=== PATIENT | female | born 1985 | race Caucasian/White ===

== ENCOUNTER → 2017-07-13 10:22 | Outpatient (CLI) | payer BC, SELFPAY ==
[2017-07-20 10:21] LABS: HPV HC, High Risk Negative (Negative); HPV Reflexed? YES, CHARGE PATIENT
== END ==
PROVIDERS: Visit Provider Obstetrics & Gynecology
DX: Z12.4 Encounter for screening for malignant neoplasm of cervix (principal)
CPT/HCPCS: 87624; 88175; G0145

== ENCOUNTER → 2019-01-15 14:31 | Outpatient (CLI) | payer BC, SELFPAY ==
[2019-01-22 16:07] LABS: Age Gdln ACOG Testing 30-65 (.)
[2019-01-23 12:04] LABS: HPV APTIMA, High Risk Negative (Negative)
[2019-01-23 12:12] LABS: HPV Reflexed? YES, CHARGE PATIENT
== END ==
PROVIDERS: Visit Provider Obstetrics & Gynecology
DX: Z12.4 Encounter for screening for malignant neoplasm of cervix (principal)
CPT/HCPCS: 87624; 88175; G0145

== ENCOUNTER → 2020-03-19 17:27 | Outpatient (CLI) | payer BC, SELFPAY ==
[2020-03-19 18:56] LABS: LDH 183 U/L (84-246); hCG Titer Quant., Serum < 1 mIU/mL (1-3)
[2020-03-22 07:22] LABS: Cancer Antigen 125 16.3 U/mL (0.0-38.1); Carcinoembryonic Antigen 0.9 ng/mL (0.0-4.7)
[2020-03-23 15:40] LABS: Carbohydrate Ag 19-9 2261 12 U/mL (0-35)
== END ==
PROVIDERS: Visit Provider Student in an Organized Health Care Education/Training Program
DX: Z34.90 Encounter for supervision of normal pregnancy, unspecified, unspecified trimester (principal)
CPT/HCPCS: 36415; 82378; 83615; 84702; 86301; 86304

== ENCOUNTER 2020-05-21 09:43 | Day surgery (SDC) | payer BC, SELFPAY ==
[2020-05-18 17:30] LABS: Hematocrit 40.2 % (37-47); Hemoglobin 13.3 g/dL (12.0-15.0); Mean Corp Hgb Conc 33.1 g/dL (32-36); Mean Corpuscular Hgb 29.7 pg (27.0-32.0); Mean Corpuscular Volume 89.7 fL (81-99); Mean Platelet Vol. 10.4 fl (6.2-12.0); Platelet Count 354 K/mm3 (150-450); RBC Distribution Width CV 12.6 % (11.6-14.6); RBC Distribution Width SD 41.2 fl (35.1-43.9); Red Blood Count 4.48 M/mm3 (4.2-5.4); White Blood Count 10.4 K/mm3 (4.4-11.0)
--- NOTE | 2020-05-20 07:22 | PCM.HPOB.BLA ---
History and Physical Date of Admission: 05/21/20 HISTORY OF PRESENT ILLNESS: On 05/18/2020, Kecia Armstrong, a 34 year old female 1 0 0 0 1, presented for: hysteroscopy, polypectomy, laparoscopic ovarian cystectomy. For uterine polyp and right ovarian cyst, possible dermoid. ALLERGIES: NKDA and No Known Drug Allergies Medical HISTORY: Hidradenitis suppuritiva Depression MEDICATIONS HISTORY: Patient is also takin. sertraline 25 mg tablet, daily PAST HISTORY: Breast/Ovarian/Colon Cancers - Denies Infections - Chicken pox Illnesses - none Accidents - no injuries of consequence History of Abnormal PAPS - NO Hospitalizations - Childbirth SURGICAL HISTORY: 1. [place] Teeth 2. 06/24/2016 left laser vein ablation 3. 04/20/2012 tonsillectomy MENSTRUAL HISTORY: LMP Known?- DefiniteAmount/Duration - 4 to 6 days, Regularity - Irregular, Frequency - monthly days, LMP - 04/24/20, Age Onset Menarche - 16 PAST PREGNANCIES: Total Pregnancies - 1; Full Term Pregnancies - 1; Premature - 0; Abortions, Induced - 0; Abortions, Spontaneous - 0; Ectopics - 0; Multiple Births - 0; Living Children - 1 FAMILY HISTORY (OLD): Maternal history of Heart Disease. Paternal history of Lung CA--Smokers. Father: Esophageal, Liver Ca. Father - FH: Cancer of the esophagus; SOCIAL HISTORY: Alcohol Use - RARELY Smoking - denies smoking Denies REVIEW OF SYSTEMS: GENERAL - Denies fever, or chills SKIN - Denies skin changes EYES - Denies visual changes EARS - Denies difficulty hearing NOSE - Denies nasal congestion or bleeding MOUTH - Denies sore throat or difficulty swallowing NECK - Denies pain or swelling RESPIRATORY - Denies shortness of breath or wheezing CARDIOVASCULAR - Denies palpitations or chest pain GASTROINTESTINAL - Denies nausea, vomiting, diarrhea, constipation GENITOURINARY - Denies dysuria, frequency of urination, incontinence of urine MUSCULOSKELETAL - Denies joint or muscle pain NEUROLOGICAL - Denies localized numbness or weakness PSYCHIATRIC - Denies depression or anxiety ENDOCRINE - Denies heat or cold intolerance, weight loss or gain HEMATO-IMMUNOLOGIC - Denies excesive bleeding with cuts BP- 140/100 Sitting, Right arm, large cuff Temp- 98.2 Weight- 305.80 lbs Height- 72.00 inch BMI:41.56 CONSTITUTIONAL - NAD, well nourished, and well developed SKIN - No rash, lesions, or ulcers HEENT - Normocephalic, PERRLA, EOMI NECK - No nodes, no nuchal rigidity and thyroid normal size and texture LYMPH NODES - Palpation of lymph nodes in neck and groins within normal limits LUNGS - CTA x2 without wheezes, crackles or rales CARDIAC - Regular rate and rhythm without rubs, murmurs, or gallops ABDOMEN - Without hepatosplenomegaly, distention, masses, rebound, or guarding; normal bowel sounds; no hernias EXTREMITIES - No edema or calf tenderness NEUROLOGICAL - Cranial nerves II-XII grossly intact PSYCHIATRIC - A and O to time, place, person, mood and affect DETAILED PELVIC EXAM External Genital Vagina - non-tender without lesions Urethra/Urethral Meatus - non-tender Bladder - non-tender Vagina - vaginal adair are pink and moist without loss of rugae and no evidence of atropy Cervix - without cervical motion tenderness and has normal size and features without evident lesions Uterus - 5-6 cm in size, mobile and nontender Adnexa - clear without massess or tenderness ASSESSMENT: PLAN BY DIAGNOSIS: 1. 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 PLanned for Hysteroscopy, polypectomy with Symphion, laparoscopic ovarian cystectomy. Likely dermoid cyst, tumor markers were wnl R/B/A discussed. Risks include, but are not limited to: risk of bleeding to the point of transfusion, infection, injury to surrounding tissue like bowel/bladder (requiring prolonged jerry catheter use), ICU admission, VTE, possible mini laparoscopy. Pt aware, consents signed
[2020-05-21] VITALS (8 sets, daily range): BP systolic 126–152; BP diastolic 80–102; PULSE 70–79; RESP 16–18; TEMP 36–36.9; O2SAT 95–100; BMI 40.9
--- NOTE | 2020-05-21 | EMB_PTH ---
PATIENT: KYLE JEFFERSON LOC: [facility] [place] U#:[id number] AGE/SX: 34/F ROOM: RE05/21/[address]: Dr. Karine Harmon DO : 1985 BED: DIS: 05/21/2020 SPEC #: [id number] RECD: 05/21/20 15:58 STATUS: AIMEE REKervin #: [id number] BOBBI: 05/21/20 00:[address]: Karine Harmon DEPT: SURGICAL PATHOLOGY RECD BY: Gerson Chambers ENTERED: 05/22/20 07:53 SP TYPE: ENDOM BX/C CARLOS DR: Uzma Brown PA-C Tissues: A - Endometrium, NOS B - Right ovary Procedures: Surgery Specimen Level IV Surgery Specimen Level V HEADER OPERATION: Hysteroscopy, D & C Symphion PRE-OP DIAGNOSIS: Infertility, neoplasm of ovary, polyp of corpus uteri TISSUE SUBMITTED: A - Endometrial polyp, B - Right ovary MICROSCOPIC DIAGNOSIS A. Endometrial polyp, biopsy: Polypoid fragments of transition endometrium with glandular and stromal breakdown. B. Right ovary, oophorectomy: Benign cystic teratoma (dermoid cyst). AM:kg 05/25/2020 MICROSCOPIC DESCRIPTION Slides are reviewed. GROSS DESCRIPTION A - Received in fixative is one container labeled with the patient's name and designated endometrial polyp. The specimen consists of multiple irregular fragments of light to dark silva soft tissue measuring in aggregate 2 x 1 x 0.1 cm. The specimen is totally submitted in one cassette. B - Received in fixative is one container labeled with the patient's name and designated right ovary. The specimen consists of a cystic right ovary that has partly been opened measuring 11 x 10 x 8 cm and is received in four fragments, the smallest of which measures 2.5 cm. The external surface is smooth and glistening. No papillary projections or excrescences are identified. The external surface is inked. The specimen weighs 255 gm in aggregate. Serial sections reveal a multilobulated cystic structure occupying 95%. The cyst wall ranges in thickness from 0.2 to 0.4 cm. The inner cyst wall is smooth and glistening. No papillary projections or excrescences are seen. A focally, nodular, firm area containing hair is present and measures 3.5 cm in greatest dimension. Tie Puller sections are submitted in four cassettes. / AM:kg 05/22/20 TC:1 CPT: 83701, 95690
[2020-05-21 10:10] LABS: Internal QC Validated? YES +Cl - CLEAR BKGD; Pregnancy, Urine Negative Negative; Record Kit Lot#,Urine Preg 42077
[2020-05-21] MEDS: Lactated Ringers 1,000 ML 100 ML IV (10:26)
--- NOTE | 2020-05-21 11:28 | OP.PCM_ITS ---
Report of Operation Date of Procedure: 05/21/20 Pre-Operative Diagnosis: Endometrial polyp, right ovarian cyst Post-Operative Diagnosis: Endometrial polyp, right ovarian cyst likely dermoid, abdominal adhesions Surgery/Procedure Performed:: Hysteroscopy, polypectomy with Symphion. Laparoscopic right oophorectomy, lysis of adhesions. Minilaparotomy. Description of Surgical Findings:: Normal external genitalia. Moderate uterine descensus. Small anterior endometrial polyp. Left pelvic adhesions of bowel fat to pelvic sidewall. Left fallopian tube adhesed and stretch posteriorly towards left colon, unable to delineate fallopian tube fimbria. Bowel fat adhered to left posterior region of uterus. Enlarged right ovarian cyst encompassing entire ovary. Appeared to have some cystic and solid regions, sebaceous material and hair within ovarian cyst. Normal right fallopian tube. Type of Anesthesia:: General Specimen's removed: Endometrial polyp, right ovary Estimated Blood Loss (mL): 50cc Fluids Replaced: 1000cc Description of Procedure: Indications: 34-year-old female with endometrial polyp and enlarged right ovarian cyst. Decision for polypectomy and cyst removal, possible oophorectomy, was made. All risk, benefits, alternatives were discussed with the patient. Risks include but are not limited to: Risk of bleeding to the point of transfusion, infection, injury to surrounding tissue including bowel or bladder, VTE, ICU admission, larger incision, possible oophorectomy. Patient were consented. Procedure: Patient taken to the operating room and placed under general anesthesia. Patient placed in the dorsal lithotomy position and prepped and draped in the usual sterile fashion. Weighted speculum placed in the posterior vagina and Alvarez retractor used to visualize the cervix which was grasped with Allis clamp. Cervix was noted to be dilated. Symphion device purged and prepped. Hyste roscope placed through the cervical canal and inspection of the endometrial cavity was noted. Fluffy endometrial lining was noted, as expected due to patient being on her menses. Small anterior endometrial polyp noted as well. Attempt to use a polyp forceps to remove, was unsuccessful. Symphion device utilized to remove polyp. Uterus sounded and HUMI manipulator placed. Allis clamp and weighted speculum removed. Deficit 600cc during this portion of the procedure Gloves were changed and attention turned the anterior abdominal wall. Veress needle placed through the umbilicus with normal opening pressure. Abdomen insufflated. 12 mm vertical supraumbilical incision made with scalpel and trocar placed under direct visualization. Right and left lower quadrant trochars were placed under direct visualization. Findings as above. Left bowel fat adhesions lysed with scissors and LigaSure. Small area of posterior uterus adhesions lysed with LigaSure. Right ovarian cyst encompassing the entire right ovary. Decision for right oophorectomy made. Right IP ligament coagulated in several locations and cut. Dissection carried down along peritoneal attachments, freeing the ovary. Right ovary was very large measuring about 12 cm. Attempted to utilize Endo Catch bag to remove the ovary however this first 1 was too small. Larger bag opened. The fascial incision in the supraumbilical trocar site was too small therefore the trochars removed and the incision was extended. This bag was able to be placed through this fascial opening at the time. It was opened and several attempts to place the ovary into the bag were made. Attempted to scoop the ovary using the bag, attempted to grasp the ovary in several locations and placed into the bag, and attempted to hold the ovary an d move the bag around it in a stable place were made. None of these were successful. At that time decision for mini laparotomy was made. Endo Catch bag was removed. 10 cm load transverse suprapubic incision made with scalpel was carried down through subcutaneous tissue using scalpel and fascia was nicked on either side of the midline. Fascia the superior fascial edge was tented up and underlying rectus muscles were dissected off bluntly and sharply. Rectus muscles were superiorly and peritoneum was identified grasped with 2 hemostats and incised using scalpel. The ovary was grasped and attempted to elevate through the incision, however the ovary was very large for the incision, being held up by the peritoneum and rectus muscles. Left rectus muscle was incised with scissors. Cystic fluid-filled area was incised with a needle and aspirated. This was not enough fluid removed to allow the ovary to be removed through the incision. Another attempt noted thicker fluid. During the attempt to grasp the ovary with RP clamps a portion of the ovary was opened. Sebaceous material and some hair was extruded and removed. At this time the ovary was able to be removed through the incision. The incision and pelvis was irrigated with 2 L of saline. Gloves were changed. Fascia was closed with a running stitch. Subcutaneous tissue was closed with a running stitch. Skin closed with a running subcuticular r stitch in this mini laparotomy area. Trochars were removed. Skin closed with a subcuticular stitch and skin glue. At the end of the procedure all needle, lap, sponge counts were correct x3. UOP 300cc - Complications None - Admit VTE Documentation VTE Mechan Device Prophylaxis: SCD's
--- NOTE | 2020-05-21 11:29 | DCINST_ITS ---
Discharge Activity: Return to Normal Activity, May not drive while taking narcotic pain medications., May Shower May resume sexual activity in: 4 weeks Weight Bearing Status: Weight bearing as tolerated Call your doctor if your incision/area has: Continuous Slow Oozing, Sudden Increased Bleeding, Increased Pain/ Swelling, Increased Redness Call your doctor if you observe: Inability to have a bowel movement, Using more than one pad per hour, Shortness of breath, Dizziness, Calf discomfort, Uncontrolled pain Remove Dressing in (days):: 1 Cleanse incision/area with: Soap & Water Additional Dressing/Incision Instructions:: Okay to remove larger incision dressing after 24 hours after surgery. Leave open to air. Allergies/Adverse Reactions: Allergies No Known Allergies Allergy (Verified 05/21/20 10:10) Medications to take at Discharge Famotidine [Pepcid] 40 mg PO BID 05/14/20 Sertraline HCl [Zoloft] 25 mg PO DAILY 05/14/20 Oxycodone [Oxyir] 5 mg PO Q6H PRN PRN 3 Days #12 tab 05/21/20 The following prescriptions were given: Oxycodone [Oxyir] 5 mg PO Q6H PRN PRN 3 Days #12 tab PRN Reason: Pain Score 6-10 Transmission Status: Received by [facility] Primary Care Physician: Uzma Brown PA-C [Primary Care Provider] - Test Results: Test results from this visit will be discussed in further detail at your follow- up appointment, if applicable. Please Follow Up With: Karine Harmon DO When: 2 week post operative visit
[2020-05-21] MEDS: oxyCODONE 5 MG Tablet PO (15:30)
== END 2020-05-21 17:01 | disposition home or self-care (01) ==
LOC: SDC 09:48 → AC 09:48
PROVIDERS: Anesthesiology; PCP Family Medicine; Referring Provider Student in an Organized Health Care Education/Training Program; Visit Provider Student in an Organized Health Care Education/Training Program
PROC: 0UB98ZZ Excision of Uterus, Via Natural or Artificial Opening Endoscopic (ICD-10-PCS; CPT 58558; principal; 2020-05-21 11:15)
PROC: (CPT 58661; 2020-05-21 11:15)
DX: D27.0 Benign neoplasm of right ovary (principal); N84.0 Polyp of corpus uteri; N97.9 Female infertility, unspecified; F32.9 Major depressive disorder, single episode, unspecified; K21.9 Gastro-esophageal reflux disease without esophagitis; F41.9 Anxiety disorder, unspecified; Z79.899 Other long term (current) drug therapy
CPT/HCPCS: 00952; 58558; 58661; 36415; 81025; 85027; 86850; 86900; 86901; 88305; 88307; J7120; J2405

== ENCOUNTER 2021-04-20 09:35 | Outpatient (CLI) | payer OTHER, SELFPAY ==
[2021-04-20 11:19] LABS: Hematocrit 38.5 % (37-47); Mean Corp Hgb Conc 33.8 g/dL (32-36); Mean Corpuscular Hgb 29.7 pg (27.0-32.0); Mean Corpuscular Volume 88.1 fL (81-99); Mean Platelet Vol. 10.8 fl (6.2-12.0); Platelet Count 271 K/mm3 (150-450); RBC Distribution Width SD 41.7 fl (35.1-43.9); Red Blood Count 4.37 M/mm3 (4.2-5.4); White Blood Count 8.3 K/mm3 (4.4-11.0)
[2021-04-20 11:28] LABS: Protein, Urine (Random) 9.9 mg/dL (<11.9); Protein:Creat Ratio 75 mg/g CRE (0-200)
[2021-04-20 11:29] LABS: ALB/GLOB Ratio 0.7 RATIO (0.9-2.4); AST(SGOT) 12 U/L (15-37); Alanine Aminotransfer ALT/SGPT 12 U/L (13-56); Albumin, Serum 2.8 g/dL (3.2-5.0); Alkaline Phosphatase 61 U/L (45-117); Anion Gap 6 (5-15); BUN 6 mg/dL (7-18); BUN/Creat Ratio 10.6 RATIO (10-20); Calcium,Total 8.8 mg/dL (8.5-10.1); Chloride 109 mmol/L (98-107); Creatinine, Serum 0.57 mg/dL (0.55-1.02); EST Glomerular Filtration Rate 130 mL/min (>60); Est Glom Filt Rate - Afr Amer 158 mL/min (>60); Glucose 104 mg/dL (74-106); LDH 142 U/L (84-246); Potassium 4.1 mmol/L (3.5-5.1); Protein, Total 6.8 g/dL (6.4-8.2); Sodium Level 138 mmol/L (136-145)
== END 2021-04-20 23:59 | disposition home or self-care (01) ==
PROVIDERS: PCP Family Medicine; Visit Provider Student in an Organized Health Care Education/Training Program
DX: O16.9 Unspecified maternal hypertension, unspecified trimester (principal); Z3A.00 Weeks of gestation of pregnancy not specified
CPT/HCPCS: 36415; 80053; 82570; 83615; 84156; 85027; 87086; 87088

== ENCOUNTER → 2021-06-17 | Outpatient (CLI) | payer OTHER, SELFPAY ==
[2021-06-17 15:23] LABS: Hematocrit 34.6 % (37-47); Hemoglobin 11.3 g/dL (12.0-15.0); Mean Corp Hgb Conc 32.7 g/dL (32-36); Mean Corpuscular Hgb 29.5 pg (27.0-32.0); Mean Corpuscular Volume 90.3 fL (81-99); Mean Platelet Vol. 11.2 fl (6.2-12.0); Platelet Count 244 K/mm3 (150-450); RBC Distribution Width CV 13.5 % (11.6-14.6); RBC Distribution Width SD 43.6 fl (35.1-43.9); Red Blood Count 3.83 M/mm3 (4.2-5.4); White Blood Count 11.8 K/mm3 (4.4-11.0)
[2021-06-17 15:30] LABS: Glucose Challenge Gest 1H 50g 142 mg/dL (70-140)
== END | disposition home or self-care (01) ==
LOC: WOBLAB 13:55
PROVIDERS: PCP Family Medicine; Visit Provider Student in an Organized Health Care Education/Training Program
DX: Z34.83 Encounter for supervision of other normal pregnancy, third trimester (principal)
CPT/HCPCS: 36415; 82950; 85027

== ENCOUNTER → 2021-06-21 | Outpatient (CLI) | payer OTHER, SELFPAY ==
[2021-06-21 09:23] LABS: Glucose GTT-Gestation. Fasting 93 mg/dL (<105)
[2021-06-21 10:29] LABS: Glucose GTT-Gestational 1 Hr 150 mg/dL (<190)
[2021-06-21 11:39] LABS: Glucose GTT-Gestational 2 Hr 116 mg/dL (<165)
[2021-06-21 13:03] LABS: Glucose GTT-Gestational 3 Hr 101 L (<145)
== END | disposition home or self-care (01) ==
LOC: WOBLAB 08:45
PROVIDERS: PCP Family Medicine; Visit Provider Student in an Organized Health Care Education/Training Program
DX: O24.912 Unspecified diabetes mellitus in pregnancy, second trimester (principal); Z3A.00 Weeks of gestation of pregnancy not specified
CPT/HCPCS: 36415; 82951; 82952

== ENCOUNTER 2021-07-02 16:27 | Outpatient (CLI) | payer OTHER, SELFPAY ==
[2021-07-02] VITALS (8 sets, daily range): BP systolic 115–141; BP diastolic 64–97; PULSE 70–83; TEMP 36.3; O2SAT 97; BMI 43.3
[2021-07-02 18:48] LABS: Hematocrit 34.6 % (37-47); Hemoglobin 11.3 g/dL (12.0-15.0); Mean Corp Hgb Conc 32.7 g/dL (32-36); Mean Corpuscular Hgb 30.3 pg (27.0-32.0); Mean Corpuscular Volume 92.8 fL (81-99); Mean Platelet Vol. 10.5 fl (6.2-12.0); Platelet Count 244 K/mm3 (150-450); RBC Distribution Width CV 13.9 % (11.6-14.6); RBC Distribution Width SD 46.8 fl (35.1-43.9); Red Blood Count 3.73 M/mm3 (4.2-5.4); White Blood Count 11.5 K/mm3 (4.4-11.0)
[2021-07-02 18:55] LABS: Color, Urine Yellow (Yellow); Glucose, Dipstick Normal (Normal); Ketone-Dipstick Negative (Negative); Leukocyte Esterase-Dipstick 100 /ul (Negative); Nitrite-Dipstick Negative (Negative); Occult Blood-Urine 250 /ul (Negative); Protein-Dipstick 30 mg/dl (Negative); Specific Gravity, Urine 1.025 (1.002-1.030); Urine Bilirubin Dipstick Negative (Negative); Urine Clarity Sl. Cloudy (Clear); Urine Urobilinogen 1 mg/dl (Normal)
[2021-07-02 19:03] LABS: ALB/GLOB Ratio 0.7 RATIO (0.9-2.4); AST(SGOT) 9 U/L (15-37); Alanine Aminotransfer ALT/SGPT 13 U/L (13-56); Albumin, Serum 2.7 g/dL (3.2-5.0); Alkaline Phosphatase 68 U/L (45-117); Anion Gap 3 (5-15); BUN 9 mg/dL (7-18); BUN/Creat Ratio 20.8 RATIO (10-20); Calcium,Total 8.6 mg/dL (8.5-10.1); Chloride 110 mmol/L (98-107); Creatinine, Serum 0.43 mg/dL (0.55-1.02); EST Glomerular Filtration Rate 178 mL/min (>60); Est Glom Filt Rate - Afr Amer 215 mL/min (>60); Estimated Creatinine Clearance 214.74 ml/min; Globulin 3.7 g/dL (2.2-4.2); Glucose 94 mg/dL (74-106); LDH 122 U/L (84-246); Potassium 4.2 mmol/L (3.5-5.1); Protein, Total 6.4 g/dL (6.4-8.2); Sodium Level 139 mmol/L (136-145)
--- NOTE | 2021-07-02 23:49 | OB.TRI.NOTE ---
HPI - General HPI Narrative KYLE JEFFERSON, is a 35 F at 27 1/7 weeks gestation by IVF dating (NICKIE 09/30/21) who presents with c/o vaginal bleeding with wiping x1 and right lower pelvic cramping. PFSH PFSH Home Medications sertraline 50 mg PO DAILY 05/14/20 [History Last Taken 07/02/21 06:00] pantoprazole [Protonix] 20 mg PO DAILY 07/02/21 [History Last Taken 07/02/21 06:00] Allergy/AdvReac Type Severity Reaction Status Date / Time No Known Allergies Allergy Verified 07/02/21 17:09 Social History Smoking Status: Never smoker NST FHR Rate Baby A Baseline: 135 Variability:: Moderate Accelerations:: 10 x 10 NST Reactive:: Yes and Appropriate for gestational age FHR Category:: Category I Uterine Activity:: 0/10 Assessment & Plan (1) 27 weeks gestation of : PLAN: No further bleeding on observation A positive No evidence of labor d/c home
[2021-07-03 23:15] LABS: 24HR. Urine Creatinine 1.17 g/24 HR (0.70-1.90)
[2021-07-04 00:50] LABS: 24 Hour Urine Protein 196.3 mg/24HR (<150 MG/24HR); 24HR. UA Prot. Total Volume 1300 mL; Urine Protein (24 Hour) 15.1 mg/dL (<11.9)
== END 2021-07-02 20:20 | disposition home or self-care (01) ==
LOC: WPOUT 16:29 → WP 16:29
PROVIDERS: PCP Family Medicine; Visit Provider Obstetrics & Gynecology
DX: O26.892 Other specified pregnancy related conditions, second trimester (principal); R10.2 Pelvic and perineal pain; R03.0 Elevated blood-pressure reading, without diagnosis of hypertension; Z3A.27 27 weeks gestation of pregnancy; O09.812 Supervision of pregnancy resulting from assisted reproductive technology, second trimester; O46.92 Antepartum hemorrhage, unspecified, second trimester
CPT/HCPCS: 36415; 59050; 80053; 81002; 82570; 83615; 84156; 84550; 85027; 87086; 87088; 99218; G0378

== ENCOUNTER → 2021-09-07 | Outpatient (CLI) | payer OTHER, SELFPAY | END | disposition home or self-care (01) | LOC: LABSPEC 15:20 | PROVIDERS: PCP Family Medicine; Visit Provider Student in an Organized Health Care Education/Training Program | DX: Z36.85 Encounter for antenatal screening for Streptococcus B (principal) | CPT/HCPCS: 87081 ==

== ENCOUNTER 2021-09-26 11:20 | Inpatient (IN) | payer OTHER, SELFPAY ==
[2021-09-26] VITALS (18 sets, daily range): BP systolic 117–150; BP diastolic 70–94; PULSE 67–86; TEMP 36.2–37.4; O2SAT 95–98; BMI 43.0
[2021-09-26] MEDS: Lactated Ringers 1,000 ML 50 ML IV (12:15)
[2021-09-26 12:44] LABS: Absolute Lymphocyte Count 1.83 X10^3/uL (0.83-4.51); Absolute Neutrophil Count 7.6 X10^3/uL (2.0-7.7); Basophil# 0.02 X10^3/uL; Basophil% 0.2 % (0-1); Eosinophil# 0.03 X10^3/uL; Eosinophils% 0.3 % (0-5); Hematocrit 35.7 % (37-47); Hemoglobin 11.4 g/dL (12.0-15.0); Lymphocyte # 1.83 X10^3/ul (0.83-4.51); Lymphocyte % 18.1 % (19-41); Mean Corp Hgb Conc 31.9 g/dL (32-36); Mean Corpuscular Hgb 28.9 pg (27.0-32.0); Mean Corpuscular Volume 90.4 fL (81-99); Mean Platelet Vol. 11.6 fl (6.2-12.0); Monocyte# 0.55 X10^3/uL; Monocyte% 5.4 % (0-10); NRBC Flagged by Analyzer 0 % (0-5); Neutrophil # 7.63 X10^3/uL (2.7-7.7); Neutrophil % 75.4 % (47-70); Platelet Count 215 K/mm3 (150-450); RBC Distribution Width SD 46.3 fl (35.1-43.9); Red Blood Count 3.95 M/mm3 (4.2-5.4); White Blood Count 10.1 K/mm3 (4.4-11.0)
[2021-09-26] MEDS: miSOPROStol 25 MCG TABLET VAGINAL (12:50)
[2021-09-26 14:59] LABS: Chlamydia Trachomatis by PCR Negative (Negative); Neisserai gonorrhoeae by PCR Negative (Negative); Probe Check PASS; Sample Adequacy Control PASS; Specimen Processing Control PASS
[2021-09-26] MEDS: Oxytocin 30 units/NS 500 ml 30 UNITS/500 ML IV.SOLN IV (18:05)
[2021-09-27] VITALS (79 sets, daily range): BP systolic 80–152; BP diastolic 49–105; PULSE 61–117; RESP 17; TEMP 36.1–37.1; O2SAT 95–100
[2021-09-27] MEDS: LACTATED RINGERS 500 ML 999 ML IV ×5 (00:15→16:17)
[2021-09-27 00:50] LABS: Rubella IgG Reactive (Nonreactive)
--- NOTE | 2021-09-27 06:57 | PCM.HP.BLA ---
History and Physical Date of Admission: 09/26/21 Chief complaint: Induction of labor at term History of present illness: 36-year-old G2, P1 at 39 weeks and 4 days with NICKIE 09/30/2021 12-week ultrasound arrives for induction of labor at term. Denies headache, visual changes, chest pain, shortness of breath, nausea vomit, right upper quadrant pain. Patient states good movement. is complicated by IVF donor egg Obstetric history: G1: 40-week 10/2010 G2: Current Past medical history: None Medications: vitamin, aspirin Past surgical history: Right oophorectomy, D&C polypectomy, venous knee surgery Family history: Denies history DVT or PE Social history: Denies smoking, alcohol use, drug use Review of systems: Besides above pertinent positives a full review of systems was performed and found to be negative Physical exam: Vitals: Blood pressure 117/75 pulse 74 General: Normal-appearing no acute distress none HEENT: Normocephalic/atraumatic no cervical lymphadenopathy Cardiac/respiratory: No successor muscles, nonlabored breathing Abdomen: Soft, nontender, gravid Cervical exam: 2-3/50/-3. AROM thin meconium Extremities: No peripheral edema normal peripheral pulses Labs: White blood cell count 10.1 hemoglobin 11.4 hematocrit 35.7% platelets 215. Blood type a positive antibody negative Assessment plan: 36-year-old G2, P1 at 39 weeks and 4 days arrives for induction of labor at term Admit labor and delivery CEFM GBS negative Cytotec induction, now Pitocin. AROM thin meconium, educated patient on meconium and risk for meconium aspiration. Will have helper shear operator at delivery Routine orders Anesthesia to see
[2021-09-27] MEDS: Lactated Ringers 1,000 ML 50 ML IV (07:40)
[2021-09-27] MEDS: fentaNYL-bupivacaine (epidural) 100 ML BAG EPIDURAL ×2 (08:04→12:43)
[2021-09-27] MEDS: Ondansetron 4 MG/2 ML Vial IV (13:19)
[2021-09-27] MEDS: Oxytocin 30 units/NS 500 ml 30 UNITS/500 ML IV.SOLN 334 UNITS IV (15:39)
[2021-09-27] MEDS: miSOPROStol 200 MCG Tablet 1000 MCG RC (15:46)
[2021-09-27] MEDS: Methylergonovine 0.2 MG/ML Ampul IM (15:49)
--- NOTE | 2021-09-27 16:25 | EX.PCM.OBRPT ---
Maternal Data Information Final NICKIE: 09/30/21 Vaginal Delivery Operative Information Date of Procedure: 09/27/21 Pre-Operative Diagnosis: Rankin intrauterine at term, meconium fluid Post-Operative Diagnosis: Rankin intrauterine at term, meconium fluid Surgery / Procedure Performed: Spontaneous Vaginal Delivery Type of Anesthesia: Epidural Estimated Blood Loss: 600cc Findings Description of Procedure: Spontaneous vaginal delivery of viable male. No nuchal cord. Baby to mom. Cord clamped and cut. Spontaneous delivery of placenta. First-degree laceration, repaired in usual fashion, hemostatic. Right labial abrasion, hemostatic without intervention. Placenta intact. Cervix examined, no lacerations. Uterus firm with bimanual massage. 1000 mcg Cytotec placed per rectum, 0.2 mg Methergine given IM. Patient had vasovagal episode when head elevated in bed. Became hypotensive, bradycardic. [place] lightheaded. Patient given IV fluid bolus. Hypotension and bradycardia resolved after patient laid flat. Patient feeling much improved. Slowly elevate head. To get up with RN when ambulating for the first time. Infant A Gender: Male (1 minute): 8 (5 minute): 9
[2021-09-27] MEDS: 0.9% Saline Lock 10 ML Syringe IV (18:22)
--- NOTE | 2021-09-27 19:09 | NURSING ---
Discussed plan with epidural catheter with Dawson. This RN was told in report to leave epidural catheter in place in case of spinal RICCI. Pt legs remain numb and pt has not ambulated. Plan to leave in place with syringe on end at this time. Will pass information onto oncoming RN.
[2021-09-27] MEDS: Ibuprofen 600 MG Tablet PO (21:07)
[2021-09-28] VITALS (13 sets, daily range): BP systolic 106–132; BP diastolic 60–88; PULSE 90–105; RESP 16; TEMP 36.4–37; O2SAT 95–98
[2021-09-28 06:18] LABS: Hemoglobin 7.7 g/dL (12.0-15.0); Mean Corp Hgb Conc 32.1 g/dL (32-36); Mean Corpuscular Hgb 28.9 pg (27.0-32.0); Mean Corpuscular Volume 90.2 fL (81-99); Mean Platelet Vol. 11.3 fl (6.2-12.0); Platelet Count 175 K/mm3 (150-450); RBC Distribution Width CV 14.3 % (11.6-14.6); RBC Distribution Width SD 45.9 fl (35.1-43.9); Red Blood Count 2.66 M/mm3 (4.2-5.4); White Blood Count 10.8 K/mm3 (4.4-11.0)
--- NOTE | 2021-09-28 07:07 | DCINST_ITS ---
Discharge Instructions Diet Discharge Diet: No restrictions Activity Discharge Activity: Return to Normal Activity, May Drive and May Shower May resume sexual activity in: 4-6 weeks Weight Bearing Status: Weight bearing as tolerated Dressing / Incision Call your doctor if your incision/area has: Continuous Slow Oozing and Foul Smelling Discharge Call your doctor if you observe: Fever of 101 or Higher, Shortness of breath and Chest pain Follow Up Care Please Follow Up With: Marco Harmon MD When: 4 to 6 weeks Test Results: Test results from this visit will be discussed in further detail at your follow- up appointment, if applicable. Discharge Plan Admission Admit Date/Time: 09/26/21 11:20 Attending Provider: Marco Harmon Primary Care Provider: Uzma Brown Discharge Orders/Prescriptions Prescriptions: No Action pantoprazole [Protonix] 20 mg Tablet,Delayed Release (Dr/Ec) 40 mg PO DAILY 1 mg Tablet 1 tab PO DAILY Referrals / Follow Up: Uzma Brown PA-C [Primary Care Provider] - Disposition Discharge Orders: Discharge Patient (Routine); Ordered 09/28/21 Ordered By: Dr. Marco Harmon
--- NOTE | 2021-09-28 07:08 | PN.OBGYN_ITS ---
Subjective Subjective No overnight complaints. Denies dizziness, chest pain, shortness of breath, weakness Objective Data Objective Data Vital Signs: Vital Signs Temp Pulse Resp BP Pulse Ox O2 Del Method 97.5 F L 90 16 127/64 H 98 Room Air 09/28/21 06:04 09/28/21 06:03 09/28/21 05:00 09/28/21 06:03 09/28/21 05:00 09/28/21 05:00 Oxygen Delivery Method Room Air Weight: 317 lb 7.45 oz Body Mass Index (BMI) 43.0 Intake & Output: Intake and Output for Last 24 Hours 09/26/21 09/27/21 09/28/21 23:59 23:59 23:59 Intake Total 27.86 / 27.86 4997.12 / 4997.12 Output Total 900 / 900 200 / 200 Balance 27.86 / 27.86 4097.12 / 4097.12 -200 / -200 Lab / Micro Data Result Diagrams: 09/28/21 06:12 Labs: Laboratory Results - last 24 hr 09/28/21 06:12: WBC 10.8, RBC 2.66 L, Hgb 7.7 L, Hct 24.0 L, MCV 90.2, MCH 28.9, MCHC 32.1, RDW Std Deviation 45.9 H, RDW Coeff of Michael 14.3, Plt Count 175, MPV 11.3 Micro: Microbiology 09/26/21 12:15 Nasal Secretion SARS-CoV-2 Antigen (Rapid) - Final Physical Exam Const alert, oriented x3, no apparent distress, average body habitus, healthy appearing and well nourished HEENT normocephalic and moist oral mucous membranes Eyes PERRL Resp normal respiratory effort, no retractions and no use of accessory muscles GI GI Narrative: Soft, nontender, uterus firm and below umbilicus Extremity normal to inspection, full ROM and no clubbing, cyanosis or edema Neuro moves all extremities and no focal motor deficits Psych mental status grossly normal, affect normal and speech normal Assessment & Plan (1) Vaginal delivery: PLAN: day 1. Breast-feeding. Pain well controlled. Asymptomatic, to take p.o. iron at home. Okay to discharge home today if okay with air traffic systems technician
[2021-09-28] MEDS: Ibuprofen 600 MG Tablet PO (08:26)
--- NOTE | 2021-09-28 16:30 | CASEMGMT ---
Social Work Brief Assessment Labor and Delivery Unit (Late entry for assessment occurring on 09/28/2021) Patient Address: [address] [place] [address] [address] [facility], [place] [address] Phone number: [phone] Date of Referral/Notification: 09/27/2021 Time of Referral: 1803 Referred By: Dr. Karine Harmon Date of Intervention: 09/28/2021 Reason for Referral: Maternal history of anxiety Informant: Medical record and mother of baby (MOB) Kecia Armstrong; father of baby (FOB) Gerson Armstrong present for part of conversation History: MOB is a 36-year-old female, to the FOB. During private conversation with the MOB, MOB denied any form of abuse, control or intimidation in this relationship. [place] baby is the first child for the parents together, with MOB having an 11-year-old from a prior relationship. baby is to be named Forrest Armstrong, born 09/27/2019. 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 care was adequate with this conceived via IVF and donor egg. Infant delivered at 7 pounds 5 ounces. Apgars 8 and 9 at 1 and 5 minutes of life respectively. There is a maternal history of anxiety though denies any history of suicidal thoughts plans or intent. No thoughts of harm to others. MOB does have a history of taking Zoloft and plans to remain on this in the timeframe. No reports or indication of any substance use issues. No drug screen noted in chart. No reported history of any children services involvement or any legal issues. Assessment: Met with MOB and FOB together, and then along with the MOB. Parents were receptive and pleasant, engaging in conversation with social insurance analyst. MOB voiced understanding for need for social work check-in as well as checking in with the MOB alone. MOB reports to have all necessary supplies to care for the baby, adequate housing, transportation, and supports available. No voiced concerns regarding ability to meet basic needs in the community. MOB reports awareness about mood and anxiety disorders, plans to remain on antidepressant and reports to have good support from work should MOB have concerns about mood or anxiety becoming distressing. There have been no voiced concerns during this hospital stay regarding parent-child interactions or bonding. MOB held good eye contact, bright affect, and happy mood. Observed MOB to handle baby appropriately and gently. MOB excepted information on mood and anxiety disorders, with local resources and online resources. MOB denies any additional concerns for home-going. Plan: MOB and infant will discharge home when stable. Resources provided for home-going related to mood and anxiety disorders. No further needs requested or indicated. -ASHA Kumar, MANJU *This note was generated with Lot18ation software. It may contain incorrect words, spelling, and punctuation that were not noted in review of the chart prior to signing*
--- NOTE | 2021-09-28 16:43 | NURSING ---
epidural cath removed with tip intact. Bandaid applied to site. No drainage or redness noted.
== END 2021-09-28 16:50 | disposition home or self-care (01) | DRG 806 ==
PROVIDERS: Student in an Organized Health Care Education/Training Program; Admitting Provider Obstetrics & Gynecology; PCP Family Medicine; Visit Provider Obstetrics & Gynecology
DX: O77.0 Labor and delivery complicated by meconium in amniotic fluid (principal); Z37.0 Single live birth; O99.43 Diseases of the circulatory system complicating the puerperium; I95.9 Hypotension, unspecified; S30.814A Abrasion of vagina and vulva, initial encounter; O70.0 First degree perineal laceration during delivery; Z3A.39 39 weeks gestation of pregnancy; O9A.22 Injury, poisoning and certain other consequences of external causes complicating childbirth
CPT/HCPCS: 59025; 59050; 85025; 85027; 86762; 86850; 86900; 86901; 87426; 87491; 87591; 99218; J7120; A4216; G0378; J2405

== ENCOUNTER → 2021-11-09 | Outpatient (CLI) | payer OTHER, SELFPAY ==
[2021-11-09 18:35] LABS: Progesterone Level 0.22 ng/mL (See Comment)
[2021-11-09 18:49] LABS: Estradiol < 11.0 pg/mL; Follicle Stimulating Hormone 54.1 mIU/mL
[2021-11-10 14:04] LABS: Prolactin 12.6 ng/mL; T4 Free Direct 0.97 ng/dL (0.76-1.46); Thyroid Stim Hormone (TSH) 1.64 uIU/mL (0.358-3.74)
== END | disposition home or self-care (01) ==
LOC: WOBLAB 16:30
PROVIDERS: PCP Family Medicine; Visit Provider Student in an Organized Health Care Education/Training Program
DX: E28.310 Symptomatic premature menopause (principal)
CPT/HCPCS: 36415; 82670; 83001; 83002; 84144; 84146; 84439; 84443

== ENCOUNTER → 2022-05-10 | Outpatient (CLI) | payer OTHER, SELFPAY ==
[2022-05-10 14:55] LABS: Vitamin D,25 Hydroxy 24.4 ng/mL
[2022-05-10 15:18] LABS: Ferritin 27 ng/mL (8-252); Thyroid Stim Hormone (TSH) 1.85 uIU/mL (0.358-3.74)
[2022-05-10 15:27] LABS: Hematocrit 39.5 % (37-47); Hemoglobin 12.9 g/dL (12.0-15.0); Mean Corp Hgb Conc 32.7 g/dL (32-36); Mean Corpuscular Hgb 30.1 pg (27.0-32.0); Mean Corpuscular Volume 92.1 fL (81-99); Mean Platelet Vol. 11.2 fl (6.2-12.0); Platelet Count 351 K/mm3 (150-450); RBC Distribution Width CV 12.6 % (11.6-14.6); RBC Distribution Width SD 42.3 fl (35.1-43.9); Red Blood Count 4.29 M/mm3 (4.2-5.4); White Blood Count 7.6 K/mm3 (4.4-11.0)
[2022-05-17 14:38] LABS: HPV APTIMA, High Risk Negative (Negative)
== END | disposition home or self-care (01) ==
LOC: WOBLAB 13:43
PROVIDERS: PCP Family Medicine; Visit Provider Student in an Organized Health Care Education/Training Program
DX: Z01.419 Encounter for gynecological examination (general) (routine) without abnormal findings (principal); E07.9 Disorder of thyroid, unspecified; E55.9 Vitamin D deficiency, unspecified
CPT/HCPCS: 36415; 82306; 82728; 84443; 85027; 87624; 88175; G0145

== ENCOUNTER 2022-07-01 05:10 | Observation (INO) | payer OTHER, SELFPAY ==
[2022-07-01] VITALS (18 sets, daily range): BP systolic 94–167; BP diastolic 62–109; PULSE 64–89; RESP 16–20; TEMP 36.3–36.7; O2SAT 92–97; BMI 28.3; BMI 41.1
--- NOTE | 2022-07-01 | GALL_PTH ---
PATIENT: KYLE JEFFERSON LOC: PCU U#:[id number] AGE/SX: 36/F ROOM: [facility] RE07/01/[address]: Dr. Myles Moncada MD : [id number] BED: 1 DIS: 07/02/2022 SPEC #: [id number] RECD: 07/01/22 16:56 STATUS: AIMEE FISHER #: [id number] BOBBI: 07/01/22 00:[address]: Myles Moncada DEPT: SURGICAL PATHOLOGY RECD BY: Gerson Chambers ENTERED: 07/04/22 10:06 SP TYPE: [place]TTONIEL GONZALEZ DR: SUHA Kessler Tissues: Gallbladder, NOS Procedures: Surgery Specimen Level III HEADER OPERATION: Laparoscopic cholecystectomy PRE-OP DIAGNOSIS: Acute cholecystitis TISSUE SUBMITTED: Gallbladder MICROSCOPIC DIAGNOSIS Gallbladder, cholecystectomy: Cholesterolosis, chronic cholecystitis and cholelithiasis. Benign pericystic lymph node. AM:kg 07/05/2022 MICROSCOPIC DESCRIPTION Slides are reviewed. GROSS DESCRIPTION Received is one container labeled with the patient's name and designated gallbladder. The specimen consists of a gallbladder measuring 11.0 cm in length and up to 3.0 cm in diameter. The external surface is pink-silva, smooth and glistening for the most part. Focally it is granular, hemorrhagic and contains cautery artifact. The gallbladder contains thick, green mucoid bile and multiple mulberry, yellowish-orange stones measuring in aggregate 3.5 x 3.0 x 1.5 cm and 0.5 to 1.5 cm in greatest dimension. The mucosa is bile-stained and without any mass lesions. The gallbladder wall measures up to 0.3 cm in thickness. Also present close to the cyst duct is a silva-pink nodule measuring 0.8 cm in greatest dimension. The mucosa also shows several yellowish streaks consistent with cholesterolosis. Manager Interface sections from the gallbladder and the cystic duct including possible lymph node are submitted in one cassette. / SJ:kg 07/04/2022 TC:3 CPT: 03941
--- NOTE | 2022-07-01 05:22 | EX.ED.DYSGE1 ---
HPI <Dr. Una Mario MD - Last Filed: 07/02/22 18:49> History of Present Illness Chief Complaint: Abd Pain Informant: patient Onset/Context/Timing Onset: Yesterday Context: Gradual Onset Current Severity: Moderate Maximum Severity: Moderate Narrative Narrative: Patient presents secondary to right upper quadrant pain and nausea. She states has been having right upper quadrant pain intermittently since September when she had a baby. She has assumed it is her gallbladder but has not had testing. She states the episodes are getting more frequent and this is the third episode she has had this week. Pain started last night around 11 or 1130 and she has not been able to get it to subside. She has had nausea but no vomiting. She has not had a fever. [facility] <Dr. Una Mario MD - Last Filed: 07/02/22 18:49> [facility] Medical History (Updated 07/02/22 @ 07:[address] Myles Moncada MD) Acute cholecystitis Anxiety Infertility Home Medications pantoprazole 20 mg tablet,delayed release (Protonix) 40 mg PO DAILY gerd 07/02/21 [History Last Taken 09/26/21 10:00] cholecalciferol (vitamin D3) 125 mcg (5,000 unit) tablet (Vitamin D3) 5,000 unit PO DAILY health maintenance 07/01/22 [History Last Taken 06/30/22 21:00] estradiol 2 mg tablet 2 mg PO DAILY 07/01/22 [History Last Taken Unknown] progesterone micronized 200 mg capsule 200 mg PO DAILY control 07/01/22 [History Last Taken 07/01/22] sertraline 100 mg tablet 100 mg PO DAILY 07/01/22 [History Last Taken Unknown] acetaminophen 325 mg tablet 650 mg PO Q4H PRN PRN PAIN 1-10/FEVER #0 tabs 07/02/22 [Rx Last Taken Unknown] oxycodone 5 mg tablet 5 - 10 mg PO Q4H PRN PRN Pain Score 4-10 5 days #20 tabs 07/02/22 [Rx Last Taken Unknown] Allergy/AdvReac Type Severity Reaction Status Date / Time No Known Allergies Allergy Verified 07/01/22 05:14 Surgical History (Updated 07/02/22 @ 07:[address] Myles Moncada MD) History of surgery Hx laparoscopic cholecystectomy Social History Smoking Status: Former smoker ROS <Dr. Una Mario MD - Last Filed: 07/02/22 18:49> ROS ED Constitutional Constitutional ED: Denies chills or fever(s) Eyes Eyes: Denies change in vision or discharge from eye(s) ENT ENT ED: Denies discharge from eye(s), rhinorrhea or sore throat Cardiovascular Cardiovascular: Denies chest pain or palpitations Respiratory/Chest Respiratory/Chest: Denies cough or dyspnea Gastrointestinal Gastrointestinal: Reports abdominal pain, diarrhea and nausea; Denies vomiting Genitourinary Genitourinary ED: Denies dysuria Musculoskeletal Musculoskeletal: Denies back pain or extremity pain Integumentary Denies Abrasions or rash Neurologic Neurologic: Denies headache(s) or weakness Psychiatric Psychiatric: Denies anxiety or depression Allergic/Immunologic Allergic/Immunologic ED: Denies lip swelling or urticaria EXAM <Dr. nUa Mario MD - Last Filed: 07/02/22 18:49> Physical Exam Const Vital Signs: 07/01/22 05:11 Temperature 97.6 F L Temperature Source Temporal Pulse Rate 89 Respiratory Rate 18 Blood Pressure 158/103 H Blood Pressure Mean 121 Pulse Ox 96 Oxygen Delivery Method Room Air Positive well nourished and well developed General Appearance ED: well developed HEENT Reports normocephalic and head/scalp atraumatic Eyes PERRL and EOMs intact bilaterally Neck supple Chest Wall inspection of chest normal and palpation of chest normal Resp normal respiratory effort and clear to auscultation bilaterally Cardio regular rate and regular rhythm GI GI Narrative: Moderate tenderness in the right upper quadrant. No guarding or rebound. Hypoactive bowel sounds. Palpation: soft Extremity normal to inspection Neuro oriented x3 and no sensory deficits noted Sensorium / Orientation: alert Motor Exam: strength 5/5 throughout Psych mental status grossly normal Skin no rashes or lesions noted <Dr. Rudy Bee MD - Last Filed: 07/01/22 09:35> Physical Exam Const Vital Signs: 07/01/22 05:11 Temperature 97.6 F L Temperature Source Temporal Pulse Rate 89 Respiratory Rate 18 Blood Pressure 158/103 H Blood Pressure Mean 121 Pulse Ox 96 Oxygen Delivery Method Room Air MDM <Dr. Una Mario MD - Last Filed: 07/02/22 18:49> MDM MDM Narrative Medical decision making narrative: Patient was given morphine and Zofran along with IV fluids. Labwork obtained to evaluate for leukocytosis, anemia, and electrolyte derangement. Lab Data Labs: Laboratory Results - last 24 hr 07/01/22 07/01/22 07/01/22 05:27 05:27 05:41 WBC Cancelled 10.4 Corrected WBC Cancelled RBC Cancelled 4.08 L Hgb Cancelled 12.1 Hct Cancelled 37.5 MCV Cancelled 91.9 MCH Cancelled 29.7 MCHC Cancelled 32.3 RDW Std Deviation Cancelled 42.2 RDW Coeff of Michael Cancelled 12.7 Plt Count Cancelled 294 MPV Cancelled 9.7 Immature Gran % (Auto) Cancelled 0.500 Neut % (Auto) Cancelled 76.9 H Lymph % (Auto) Cancelled 16.1 L [place] % (Auto) Cancelled 5.3 Eos % (Auto) Cancelled 0.7 Baso % (Auto) Cancelled 0.5 Absolute Neuts (auto) Cancelled 8.0 H Absolute Lymphs (auto) Cancelled 1.67 Total Counted Cancelled Neutrophils % (Manual) Cancelled Band Neutrophils % Cancelled Lymphocytes % (Manual) Cancelled Monocytes % (Manual) Cancelled Eosinophils % (Manual) Cancelled Basophils % (Manual) Cancelled Metamyelocytes % Cancelled Myelocytes % Cancelled Promyelocytes % Cancelled Blast Cells % Cancelled Plasma Cell % (Manual) Cancelled Other Cells % Cancelled Nucleated RBC % Cancelled 0 Nucleated RBCs/100 WBC Cancelled Differential Comment Cancelled Diff Path Review Cancelled Hypersegmented Neuts Cancelled Atypical Lymphocytes Cancelled Reactive Lymphocytes Cancelled Smudge Cells Cancelled Toxic Granulation Cancelled Toxic Vacuolation Cancelled Dohle Bodies Cancelled Desiree Rods Cancelled Platelet Estimate Cancelled Plt Morphology Comment Cancelled RBC Morphology Cancelled Polychromasia Cancelled Hypochromasia Cancelled Poikilocytosis Cancelled Basophilic Stippling Cancelled Anisocytosis Cancelled Microcytosis Cancelled Macrocytosis Cancelled Spherocytes Cancelled Sickle Cells Cancelled Target Cells Cancelled Tear Drop Cells Cancelled Ovalocytes Cancelled Stomatocytes Cancelled [place]ino[place] Bodies Cancelled Harinder Cells Cancelled Bite Cells Cancelled Crenated Cell Cancelled Acanthocytes (Spur) Cancelled Rouleaux Cancelled Schistocytes Cancelled Sodium 139 Potassium 4.5 Chloride 110 H Carbon Dioxide 22.0 Anion Gap 7 BUN 16 Creatinine 0.53 L Estim Creat Clear Calc 172.60 Est GFR (MDRD) Af Amer 168 Est GFR (MDRD) Non-Af 139 BUN/Creatinine Ratio 30.0 H Glucose 104 Calcium 8.3 L Total Bilirubin 0.20 Direct Bilirubin 0.06 AST 14 L ALT 20 Alkaline Phosphatase 85 Total Protein 7.3 Albumin 3.4 Globulin 3.9 Lipase 33 Radiography Diagnostic Testing: Clinical Impression(s) from Imaging Studies Gallbladder Ultrasound 07/01/22 05:54 IMPRESSION: Multiple gallstones. Gallbladder wall thickening or pericholecystic fluid. Adenomyomatosis of the gallbladder wall. No biliary dilatation. Liver is enlarged with fatty infiltration. Electronically Signed: Rudy Dexter MD at 8:15 EDT , ADDENDUM: 07/01/22 0906 IMPRESSION: Multiple gallstones. Gallbladder wall thickening and pericholecystic fluid. Adenomyomatosis of the gallbladder wall. No biliary dilatation. Liver is enlarged with fatty infiltration. Electronically Signed: Rudy Dexter MD at 8:59 EDT , Differential Diagnosis Abdominal Pain: Appendicitis Reason(s) appendicitis less likely: Positive for clinical exam does not supportclinical exam does not support, Cholecystitis and Pancreatitis Reason(s) Pancreatitis less likely: NL lab values Treatment and Re-Evaluation :: On repeat evaluation patient resting more comfortably. CBC reveals normal white count at 10.4 with 77% neutrophils. Chemistry studies unremarkable. Right upper quadrant ultrasound is ordered. Patient signed out to oncoming physician for final review of ultrasound and disposition. <Dr. Rudy Bee MD - Last Filed: 07/01/22 09:35> [facility] Lab Data Attestation: I reviewed the patient's lab results. Labs: Laboratory Results - last 24 hr 07/01/22 07/01/22 07/01/22 05:27 05:27 05:41 WBC Cancelled 10.4 Corrected WBC Cancelled RBC Cancelled 4.08 L Hgb Cancelled 12.1 Hct Cancelled 37.5 MCV Cancelled 91.9 MCH Cancelled 29.7 MCHC Cancelled 32.3 RDW Std Deviation Cancelled 42.2 RDW Coeff of Michael Cancelled 12.7 Plt Count Cancelled 294 MPV Cancelled 9.7 Immature Gran % (Auto) Cancelled 0.500 Neut % (Auto) Cancelled 76.9 H Lymph % (Auto) Cancelled 16.1 L [place] % (Auto) Cancelled 5.3 Eos % (Auto) Cancelled 0.7 Baso % (Auto) Cancelled 0.5 Absolute Neuts (auto) Cancelled 8.0 H Absolute Lymphs (auto) Cancelled 1.67 Total Counted Cancelled Neutrophils % (Manual) Cancelled Band Neutrophils % Cancelled Lymphocytes % (Manual) Cancelled Monocytes % (Manual) Cancelled Eosinophils % (Manual) Cancelled Basophils % (Manual) Cancelled Metamyelocytes % Cancelled Myelocytes % Cancelled Promyelocytes % Cancelled Blast Cells % Cancelled Plasma Cell % (Manual) Cancelled Other Cells % Cancelled Nucleated RBC % Cancelled 0 Nucleated RBCs/100 WBC Cancelled Differential Comment Cancelled Diff Path Review Cancelled Hypersegmented Neuts Cancelled Atypical Lymphocytes Cancelled Reactive Lymphocytes Cancelled Smudge Cells Cancelled Toxic Granulation Cancelled Toxic Vacuolation Cancelled Dohle Bodies Cancelled Desiree Rods Cancelled Platelet Estimate Cancelled Plt Morphology Comment Cancelled RBC Morphology Cancelled Polychromasia Cancelled Hypochromasia Cancelled Poikilocytosis Cancelled Basophilic Stippling Cancelled Anisocytosis Cancelled Microcytosis Cancelled Macrocytosis Cancelled Spherocytes Cancelled Sickle Cells Cancelled Target Cells Cancelled Tear Drop Cells Cancelled Ovalocytes Cancelled Stomatocytes Cancelled Espino[place] Bodies Cancelled [place] Cells Cancelled Bite Cells Cancelled Crenated Cell Cancelled Acanthocytes (Spur) Cancelled Rouleaux Cancelled Schistocytes Cancelled Sodium 139 Potassium 4.5 Chloride 110 H Carbon Dioxide 22.0 Anion Gap 7 BUN 16 Creatinine 0.53 L Estim Creat Clear Calc 172.60 Est GFR (MDRD) Af Amer 168 Est GFR (MDRD) Non-Af 139 BUN/Creatinine Ratio 30.0 H Glucose 104 Calcium 8.3 L Total Bilirubin 0.20 Direct Bilirubin 0.06 AST 14 L ALT 20 Alkaline Phosphatase 85 Total Protein 7.3 Albumin 3.4 Globulin 3.9 Lipase 33 Radiography Diagnostic Testing: Clinical Impression(s) from Imaging Studies Gallbladder Ultrasound 07/01/22 05:54 IMPRESSION: Multiple gallstones. Gallbladder wall thickening or pericholecystic fluid. Adenomyomatosis of the gallbladder wall. No biliary dilatation. Liver is enlarged with fatty infiltration. Electronically Signed: Rudy Dexter MD at 8:15 EDT , ADDENDUM: 07/01/22 0906 IMPRESSION: Multiple gallstones. Gallbladder wall thickening and pericholecystic fluid. Adenomyomatosis of the gallbladder wall. No biliary dilatation. Liver is enlarged with fatty infiltration. Electronically Signed: Rudy Dexter MD at 8:59 EDT , Management Discussion w/another healthcare provider: [facility] Treatment and Re-Evaluation Comments:: Patient checked out to me. Gallbladder ultrasound images and interpretation by the radiologist reviewed and I agree with it. It shows multiple gallstones in addition to gallbladder wall thickening and pericholecystic fluid. I reexamined the patient. Her exam is very benign right now, she barely is tender in her right upper quadrant no guarding or rebound or Willis sign clinically. I reviewed her labs as well discussed with Dr. Moncada with surgery, who also reviewed and recommends admission for cholecystectomy which the patient is definitely comfortable with. Zosyn started in ED, patient is clinically and hemodynamically stable right now we will retreat her pain if it worsens. Discharge Plan Disposition Disposition: Acute Care Hospital [facility] Discharge Date/Time: 07/01/22 10:01
[2022-07-01] MEDS: Ondansetron 4 MG/2 ML Vial IV (05:33)
[2022-07-01] MEDS: 0.9% Normal Saline 1,000 ML 150 ML IV (05:33)
[2022-07-01] MEDS: Morphine 4 MG/ML Syringe IV (05:34)
[2022-07-01 05:41] LABS: Internal QC Validated? YES +Cl - CLEAR BKGD; Pregnancy, Serum, hCG Quali. NEGATIVE Negative
[2022-07-01 05:45] LABS: Absolute Lymphocyte Count 1.67 X10^3/uL (0.83-4.51); Basophil# 0.05 X10^3/uL; Basophil% 0.5 % (0-1); Eosinophil# 0.07 X10^3/uL; Eosinophils% 0.7 % (0-5); Hematocrit 37.5 % (37-47); Hemoglobin 12.1 g/dL (12.0-15.0); Lymphocyte # 1.67 X10^3/ul (0.83-4.51); Lymphocyte % 16.1 % (19-41); Mean Corp Hgb Conc 32.3 g/dL (32-36); Mean Corpuscular Hgb 29.7 pg (27.0-32.0); Mean Corpuscular Volume 91.9 fL (81-99); Mean Platelet Vol. 9.7 fl (6.2-12.0); Monocyte# 0.55 X10^3/uL; Monocyte% 5.3 % (0-10); NRBC Flagged by Analyzer 0 % (0-5); Neutrophil # 7.99 X10^3/uL (2.7-7.7); Neutrophil % 76.9 % (47-70); Platelet Count 294 K/mm3 (150-450); RBC Distribution Width CV 12.7 % (11.6-14.6); RBC Distribution Width SD 42.2 fl (35.1-43.9); Red Blood Count 4.08 M/mm3 (4.2-5.4); White Blood Count 10.4 K/mm3 (4.4-11.0)
[2022-07-01 05:50] LABS: AST(SGOT) 14 U/L (15-37); Alanine Aminotransfer ALT/SGPT 20 U/L (13-56); Albumin, Serum 3.4 g/dL (3.2-5.0); Alkaline Phosphatase 85 U/L (45-117); Anion Gap 7 (5-15); BUN 16 mg/dL (7-18); Bilirubin, Direct 0.06 mg/dL (0.00-0.30); Calcium,Total 8.3 mg/dL (8.5-10.1); Chloride 110 mmol/L (98-107); Creatinine, Serum 0.53 mg/dL (0.55-1.02); EST Glomerular Filtration Rate 139 mL/min (>60); Est Glom Filt Rate - Afr Amer 168 mL/min (>60); Globulin 3.9 g/dL (2.2-4.2); Glucose 104 mg/dL (74-106); Lipase 33 U/L (13-75); Potassium 4.5 mmol/L (3.5-5.1); Protein, Total 7.3 g/dL (6.4-8.2); Sodium Level 139 mmol/L (136-145)
--- NOTE | 2022-07-01 05:54 | US_ITS ---
STUDY: ABDOMINAL ULTRASOUND - RIGHT UPPER QUADRANT REASON FOR VISIT: Female, 36 years old Pain TECHNIQUE: Ultrasound evaluation of the right upper quadrant was performed with real-time and static da silva-scale imaging. TECHNICAL QUALITY: Adequate. COMPARISON: None. FINDINGS: Liver: The liver measures 22.3 cm. There is increased echogenicity consistent with fatty infiltration. The bile ducts are within normal limits. There is hepatic color flow. The direction of portal flow is hepatopetal. There is no demonstrated mass lesion. Gallbladder: Normal distended gallbladder. The gallbladder wall measures 5 mm. There is comet tail artifact consistent with adenomyomatosis. There is a negative sonographic Willis''s sign. There is pericholecystic fluid. There are multiple echogenic structures within the gallbladder, consistent with multiple gallstones. Common Bile Duct (C.B.D.): The common bile duct measures 4 mm. Pancreas: Normal size of the head, body and tail of the pancreas. There is normal echogenicity of the pancreas. There is no demonstrated pancreatic mass or cyst. Right Kidney: Normal size of the right kidney. The right kidney measures 13.7 cm. Normal renal cortex. The right cortex measures 1.5 cm. There is no demonstrated renal mass or cyst. There is no right hydronephrosis. US/Gallbladder IMPRESSION: Multiple gallstones. Gallbladder wall thickening or pericholecystic fluid. Adenomyomatosis of the gallbladder wall. No biliary dilatation. Liver is enlarged with fatty infiltration. Electronically Signed: Rudy Dexter MD at 8:15 EDT ,
--- NOTE | 2022-07-01 10:05 | EKG12_ITS ---
Test Reason : PRE OP Blood Pressure : / mmHG Vent. Rate : 062 BPM Atrial Rate : 062 BPM P-R Int : 154 ms QRS Dur : 094 ms QT Int : 442 ms P-R-T Axes : 020 000 010 degrees QTc Int : 448 ms Normal sinus rhythm Minimal voltage criteria for LVH, may be normal variant ( R in aVL ) Borderline ECG No previous ECGs available Confirmed by KEYLA NARAYANAN, DAR ([id number]), video tape editor NAVIN MILLER ([id number]) on 07/05/2022 10:02:12 AM Referred By: FARIDEH Confirmed By:DAR RAMIRES MD
[2022-07-01] MEDS: Lactated Ringers 1,000 ML 100 ML IV ×3 (11:22→22:01)
--- NOTE | 2022-07-01 11:24 | HP.PCM.SX_ITS ---
HPI - General General Date of Admission: 07/01/22 HPI Narrative KYLE JEFFERSON, is a 36 F who presents with abdominal pain. Patient reports she has been having these episodes of abdominal pain since September when she gave . She says has been worse especially this week she has had 3 episodes. Pain is in the right upper quadrant and it is accompanied by nausea but no vomiting. [facility] Medical History Anxiety Infertility Home Medications pantoprazole 20 mg tablet,delayed release (Protonix) 40 mg PO DAILY gerd 07/02/21 [History Last Taken 09/26/21 10:00] cholecalciferol (vitamin D3) 125 mcg (5,000 unit) tablet (Vitamin D3) 5,000 unit PO DAILY health maintenance 07/01/22 [History Last Taken 06/30/22 21:00] estradiol 2 mg tablet 2 mg PO DAILY 07/01/22 [History Last Taken Unknown] progesterone micronized 200 mg capsule 200 mg PO DAILY control 07/01/22 [History Last Taken 07/01/22] sertraline 100 mg tablet 100 mg PO DAILY 07/01/22 [History Last Taken Unknown] Allergy/AdvReac Type Severity Reaction Status Date / Time No Known Allergies Allergy Verified 07/01/22 05:14 Surgical History History of surgery Social History Smoking Status: Former smoker ROS Constitutional Constitutional: Denies anorexia, chills or fatigue Eyes Eyes: Denies blurry vision ENT HEENT: Denies abnormal hearing Cardiovascular Cardiovascular: Denies chest pain Respiratory/Chest Respiratory/Chest: Denies cough or dyspnea Gastrointestinal Gastrointestinal: Reports abdominal pain and nausea; Denies diarrhea, dysphagia or vomiting Genitourinary Genitourinary: Denies change in urinary stream Musculoskeletal Musculoskeletal: Denies abnormal gait Integumentary Integumentary: Denies jaundice Neurologic Neurologic: Denies abnormal gait Hematologic/Lymphatic Hematologic/Lymphatic: Denies easy bleeding Vital Signs Vital Signs Vital Signs: 07/01/22 05:11 07/01/22 10:00 07/01/22 11:15 Temperature 97.6 F L 97.8 F 97.9 F Temperature Source Temporal Temporal Temporal Pulse Rate 89 87 64 Respiratory Rate 18 18 18 Blood Pressure 158/103 H 140/87 H 116/72 Blood Pressure Mean 121 104 86 Blood Pressure Source Monitor Blood Pressure Position Semi-Fowlers Blood Pressure Location Left Arm Pulse Ox 96 97 96 Oxygen Delivery Method Room Air Room Air Room Air Weight Weight: 303 lb 5.697 oz Body Mass Index (BMI) 41.1 Physical Exam Const oriented x3 Resp normal respiratory effort Cardio regular rate GI soft to palpation Palpation: tender RUQ Results Lab / Micro Data Result Diagrams: 07/01/22 05:41 07/01/22 05:27 Labs: Laboratory Results - last 24 hr 07/01/22 05:27: WBC Cancelled, Corrected WBC Cancelled, RBC Cancelled, Hgb Cancelled, Hct Cancelled, MCV Cancelled, MCH Cancelled, MCHC Cancelled, RDW Std Deviation Cancelled, RDW Coeff of Michael Cancelled, Plt Count Cancelled, MPV Cancelled, Immature Gran % (Auto) Cancelled, Neut % (Auto) Cancelled, Lymph % (Auto) Cancelled, [place] % (Auto) Cancelled, Eos % (Auto) Cancelled, Baso % (Auto) Cancelled, Absolute Neuts (auto) Cancelled, Absolute Lymphs (auto) Cancelled, Total Counted Cancelled, Neutrophils % (Manual) Cancelled, Band Neutrophils % Cancelled, Lymphocytes % (Manual) Cancelled, Monocytes % (Manual) Cancelled, Eosinophils % (Manual) Cancelled, Basophils % (Manual) Cancelled, Metamyelocytes % Cancelled, Myelocytes % Cancelled, Promyelocytes % Cancelled, Blast Cells % Cancelled, Plasma Cell % (Manual) Cancelled, Other Cells % Cancelled, Nucleated RBC % Cancelled, Nucleated RBCs/100 WBC Cancelled, Differential Comment Cancelled, Diff Path Review Cancelled, Hypersegmented Neuts Cancelled, Atypical Lymphocytes Cancelled, Reactive Lymphocytes Cancelled, Smudge Cells Cancelled, Toxic Granulation Cancelled, Toxic Vacuolation Cancelled, Dohle Bodies Cancelled, Desiree Rods Cancelled, Platelet Estimate Cancelled, Plt Morphology Comment Cancelled, RBC Morphology Cancelled, Polychromasia Cancelled, Hypochromasia Cancelled, Poikilocytosis Cancelled, Basophilic Stippling Cancelled, Anisocytosis Cancelled, Microcytosis Cancelled, Macrocytosis Cancelled, Spherocytes Cancelled, Sickle Cells Cancelled, Target Cells Cancelled, Tear Drop Cells Cancelled, Ovalocytes Cancelled, Stomatocytes Canc elled, Espinoza-[place] Bodies Cancelled, [place] Cells Cancelled, Bite Cells Cancelled, Crenated Cell Cancelled, Acanthocytes (Spur) Cancelled, Rouleaux Cancelled, Schistocytes Cancelled 07/01/22 05:27: Sodium 139, Potassium 4.5, Chloride 110 H, Carbon Dioxide 22.0, Anion Gap 7, BUN 16, Creatinine 0.53 L, Estim Creat Clear Calc 172.60, Est GFR (MDRD) Af Amer 168, Est GFR (MDRD) Non-Af 139, BUN/Creatinine Ratio 30.0 H, Glucose 104, Calcium 8.3 L, Total Bilirubin 0.20, Direct Bilirubin 0.06, AST 14 L, ALT 20, Alkaline Phosphatase 85, Total Protein 7.3, Albumin 3.4, Globulin 3.9, Lipase 33 07/01/22 05:27: Serum , Qual NEGATIVE 07/01/22 05:41: WBC 10.4, RBC 4.08 L, Hgb 12.1, Hct 37.5, MCV 91.9, MCH 29.7, MCHC 32.3, RDW Std Deviation 42.2, RDW Coeff of Michael 12.7, Plt Count 294, MPV 9.7 , Immature Gran % (Auto) 0.500, Neut % (Auto) 76.9 H, Lymph % (Auto) 16.1 L, [place] % (Auto) 5.3, Eos % (Auto) 0.7, Baso % (Auto) 0.5, Absolute Neuts (auto) 8.0 H, Absolute Lymphs (auto) 1.67, Nucleated RBC % 0 Radiology Impression Gallbladder Ultrasound 07/01/22 05:54 IMPRESSION: Multiple gallstones. Gallbladder wall thickening or pericholecystic fluid. Adenomyomatosis of the gallbladder wall. No biliary dilatation. Liver is enlarged with fatty infiltration. Electronically Signed: Rudy Dexter MD at 8:15 EDT , ADDENDUM: 07/01/22 0906 IMPRESSION: Multiple gallstones. Gallbladder wall thickening and pericholecystic fluid. Adenomyomatosis of the gallbladder wall. No biliary dilatation. Liver is enlarged with fatty infiltration. Electronically Signed: Rudy Dexter MD at 8:59 EDT , Assessment & Plan Assessment/Plan (1) Acute cholecystitis: PLAN: Patient had an ultrasound which shows gallstones and thickening of the wall of the gallbladder. She also has an elevated white count with left shift. I recommended laparoscopic cholecystectomy. I discussed the procedure in detail with the patient. I discussed the risks, benefits, and alternatives of the procedure. I discussed the risks including but not limited to bleeding, infection, injury to surrounding organs such as the liver, bile duct, bowels. I did discuss the possibility of having to convert to an open procedure as well as the possibility that if any injuries occurred this may necessitate further surgery at a tertiary care center. Myles Moncada MD Pager: [facility] [address] [place] [address], [address] [place] [address] Office:
[2022-07-01] MEDS: Bupivacaine 0.25% 30 ML Vial (13:45)
--- NOTE | 2022-07-01 14:25 | OP.PCM_ITS ---
Report of Operation Date of Procedure: 07/01/22 Pre-Operative Diagnosis: Acute cholecystitis Post-Operative Diagnosis: Acute cholecystitis Surgery/Procedure Performed:: Laparoscopic cholecystectomy Specimen's removed: Gallbladder Description of Procedure: After obtaining informed consent patient was brought back to the operating room. General anesthesia was induced. The abdomen was prepped and draped in usual sterile fashion. A small midline incision was made superior to the umbilicus and deepened to the level of fascia. The fascia was elevated and incised. Next the peritoneum was elevated and incised in the same fashion. Finger sweep was performed and the Lockett trocar was placed into the abdomen. The balloon was inflated. The abdomen was inflated to 15 mmHg. Next a camera was introduced into the abdomen and the abdomen was inspected. Next under direct visualization three 5-mm ports were placed one subxiphoid and 2 subcostal. Next the gallbladder was elevated and retracted toward the right shoulder. The peritoneum was stripped from the gallbladder. The infundibulum was located and retracted laterally. Next the triangle of Calot was dissected and the cystic duct and cystic artery were identified. Cholangiograms were unable to be performed. The Resendiz clamp was used to clamp across the infundibulum but the stone was in the way and I was unable to remove it to place the needle into the fundus to do cholangiograms. Three hemolock clips were placed across the cystic duct. The cystic duct was then divided leaving 2 clips on the stump. The cystic artery was clipped and divided in the same fashion. The hook cautery was then used to take the gallbladder off of the gallbladder bed. Hemostasis was obtained. Gallbladder fossa was irrigated and no active bleeding or bile leakage was noted. Next the camera was introduced in the subxiphoid port. An Endopouch bag was placed through the umbilical port and the gallbladder was placed into it. The gallbladder was then removed through the umbilical incision. The camera was then reinserted through the umbilical port. The gallbladder fossa was inspected once more and noted to be hemostatic with no leaking bile. The abdomen was suctioned dry. The 5 mm ports were removed under direct visualization. The umbilical port was then removed and the air was removed from the abdomen. Next using an 0 Vicryl suture the umbilical fascia was closed in a [id number] fashion. The umbilical port site was irrigated local anesthetic was administered to all the incisions. All the incisions were closed with interrupted subcuticular 4-0 Monocryl sutures followed by Steri- Strips and dressings. The patient was awoken and taken to PACU in stable condition. Admit VTE Documentation VTE Mechan Device Prophylaxis: SCD's
--- NOTE | 2022-07-01 14:32 | SUR.PHASEI ---
PATIENT VOMITED GREEN WITH SOME STREAKING OF RED BLOOD. ZOFRAN AND MORPHINE GIVEN.
[2022-07-01] MEDS: hydrALAZINE 20 MG/ML Vial 10 MG IV (16:07)
--- NOTE | 2022-07-01 16:55 | SUR.PHASEI ---
THIS NURSE CALLED [facility]U CHARGE NURSE AND ASKED IF SHE RECEIVED THE REPORT. SHE SAID THAT SHE HAD NOT SO I GAVE HER A VERBAL REPORT AND ADDED THAT I JUST HAD TO GIVE HER A DOSE OF PHENERGAN 12.5 MG IM FOR A VOMITING EPISODE WHEN SHE TURNED OVER ON HER SIDE. DR. PHOENIX SAID IT WAS OK TO GIVE THIS MEDICATION PRIOR TO GOING TO THE FLOOR.
--- NOTE | 2022-07-01 17:22 | NURSING ---
Pt returned from procedure at this time.
[2022-07-01] MEDS: oxyCODONE 5 MG Tablet PO ×2 (17:41→22:04)
[2022-07-02 01:36] VITALS: BP 120/76; PULSE 75; RESP 16; TEMP 36.9; O2SAT 95
[2022-07-02] MEDS: Acetaminophen 325 MG Tablet 650 MG PO (05:38)
--- NOTE | 2022-07-02 07:37 | PN.SURG_ITS ---
Subjective Subjective Patient tolerating diet with no nausea or vomiting. Pain well controlled. Objective Data Objective Data Vital Signs: Vital Signs Temp Pulse Resp BP Pulse Ox O2 Del Method O2 Flow Rate 98.5 F 75 16 120/76 95 Room Air 2 07/02/22 01:36 07/02/22 01:36 07/02/22 01:36 07/02/22 01:36 07/02/22 01:36 07/02/22 01:36 07/01/22 17:49 Oxygen Flow Rate (L/min) 2 Oxygen Delivery Method Room Air Weight: 303 lb 5.697 oz Body Mass Index (BMI) 41.1 Intake & Output: Intake and Output for Last 24 Hours 06/30/22 07/01/22 07/02/22 23:59 23:59 23:59 Intake Total 2737.5 / 2737.5 Output Total 400 / 400 Balance 2337.5 / 2337.5 Lab / Micro Data Result Diagrams: 07/01/22 05:41 07/01/22 05:27 Labs: Laboratory Results - last 24 hr 07/01/22 05:27: Serum , Qual NEGATIVE Radiography Diagnostic Testing: Radiology Impression Gallbladder Ultrasound 07/01/22 05:54 IMPRESSION: Multiple gallstones. Gallbladder wall thickening or pericholecystic fluid. Adenomyomatosis of the gallbladder wall. No biliary dilatation. Liver is enlarged with fatty infiltration. Electronically Signed: Rudy Dexter MD at 8:15 EDT , ADDENDUM: 07/01/22 0906 IMPRESSION: Multiple gallstones. Gallbladder wall thickening and pericholecystic fluid. Adenomyomatosis of the gallbladder wall. No biliary dilatation. Liver is enlarged with fatty infiltration. Electronically Signed: Rudy Dexter MD at 8:59 EDT , Physical Exam Const oriented x3 Resp normal respiratory effort GI normal to inspection, nondistended, normoactive bowel sounds Assessment & Plan Assessment/Plan (1) Acute cholecystitis: PLAN: Patient doing well after laparoscopic cholecystectomy. I will discharge her home today and follow-up with her in 2 weeks. Postoperative instructions were given. Myles Moncada MD Pager: [facility] [address] [place] [address] Office:
--- NOTE | 2022-07-02 07:38 | DCINST_ITS ---
Discharge Instructions Procedure Gallbladder Diet Discharge Diet: Light diet - advance as tolerated Activity Discharge Activity: May Not Drive (for 2-3 days or while taking narcotic pain medications.) and - (Do not drive, work heavy equipment or sign legal documents for 24 hours.) May shower in (days): 1 Lifting Restrictions: 20 lbs for 2 weeks Additional Activity Instructions:: Pain medication may cause nausea. You should typically eat light foods as you take your pain medications. Pain medication may also cause constipation. If this is a problem for you, please discuss with your doctor. Dressing / Incision Call your doctor if your incision/area has: Continuous Slow Oozing, Sudden Increased Bleeding, Increased Pain/ Swelling, Increased Redness and Foul Smelling Discharge Call your doctor if you observe: Fever of 101 or Higher Suture Line Care: Avoid Pulling/Pushing and Avoid Pinching/Bending Remove Dressing in: 2 days Additional Dressing/Incision Instructions:: Leave operative bandaids on for 2 days. When you remove dressing, leave Steri-Strips on until your follow-up appointment, or until the Steri-Strips fall off on their own. Follow Up Care Please Follow Up With: Myles Moncada MD When: Please call to schedule 2 week follow up appointment. [phone] Test Results: Test results from this visit will be discussed in further detail at your follow- up appointment, if applicable. Discharge Plan Admission Admit Date/Time: 07/01/22 10:48 Attending Provider: Myles Moncada Primary Care Provider: Jeanne Price Discharge Orders/Prescriptions Prescriptions: New acetaminophen 325 mg Tablet 650 mg PO Q4H PRN PRN (Reason: PAIN 1-10/FEVER) Qty: 0 0RF oxycodone 5 mg Tablet 5 - 10 mg PO Q4H PRN PRN (Reason: Pain Score 4-10) 5 Days Qty: 20 0RF Continued pantoprazole [Protonix] 20 mg Tablet,Delayed Release (Dr/Ec) 40 mg PO DAILY sertraline 100 mg tablet 100 mg PO DAILY Label Comments: TAKE ONE TABLET BY MOUTH DAILY progesterone micronized 200 mg capsule 200 mg PO DAILY Label Comments: TAKE ONE CAPSULE BY MOUTH EVERY DAY FOR THE first 12 DAYS of THE MONTH Rx Instructions: Takes first 12 days of the month estradiol 2 mg tablet 2 mg PO DAILY Label Comments: TAKE ONE TABLET BY MOUTH EVERY DAY cholecalciferol (vitamin D3) [Vitamin D3] 125 mcg (5,000 unit) Tablet 5,000 unit PO DAILY Referrals / Follow Up: Jeanne Price PA [Primary Care Provider] - Disposition Disposition (needs filled in before D/C Order can be placed): Home, Self Care
[2022-07-02 08:30] VITALS: BP 128/93; PULSE 70; RESP 18; TEMP 36.8; O2SAT 95
[2022-07-02] MEDS: oxyCODONE 5 MG Tablet PO (08:32)
== END 2022-07-02 07:40 | disposition home or self-care (01) ==
LOC: ED 05:39 → PCU 09:35
PROVIDERS: Admitting Provider Surgery; Emergency Provider Emergency Medicine; Visit Provider Surgery
PROC: (CPT 47610; principal; 2022-07-01 13:10)
DX: K80.00 Calculus of gallbladder with acute cholecystitis without obstruction (principal); Z87.891 Personal history of nicotine dependence; D13.5 Benign neoplasm of extrahepatic bile ducts; F41.9 Anxiety disorder, unspecified; Z79.899 Other long term (current) drug therapy
CPT/HCPCS: 47562; 76705; 80048; 80076; 83690; 84703; 85025; 88304; 93005; 96361; 96365; 96366; 96375; 99221; 99283; J7030; J7120; A4216; G0378; J2405